=== PATIENT | female | born 2000 | race Caucasian/White ===

== ENCOUNTER 2019-09-01 17:17 | Emergency (ER) | payer SELFPAY ==
[2019-09-01 17:43] VITALS: BP 119/67
--- NOTE | 2019-09-01 18:07 | ER Document Report ---
HPI - HPI Patient complains to provider of: Heel pain Time Seen by Provider: 09/01/19 18:00 Pain Level: 4 Notes: 18-year-old female to the emergency department with complaints of bilateral heel pain and left ankle pain that is been ongoing for the past 2 weeks. 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 She stood she did around off and flip when she landed on her friend's floor she had immediate pain in both of her heels. She states that she did not realize that the patient's carpeted floor was carpeted upon cement. Since then she has pain every time she walks on her heels. She does not have pain in the forefoot of the heel. She does state that her left heel hurts worse than the right. She also states that her left ankle hurts. She also requests testing today. States she has not had a missed period but that she has been actively trying to get . - CONSTITUTIONAL Constitutional: DENIES: Fever, Chills - EENT EENT: DENIES: Sore Throat, Ear Pain, Nasal Drainage-Clear, Congestion - NEURO Neurology: DENIES: Headache - CARDIOVASCULAR Cardiovascular: DENIES: Chest pain - RESPIRATORY Respiratory: DENIES: Trouble Breathing, Coughing - GASTROINTESTINAL Gastrointestinal: DENIES: Abdominal Pain, Nausea, Patient vomiting, Diarrhea, Constipation - REPRODUCTIVE Notes: patient would like to be tested for - MUSCULOSKELETAL Musculoskeletal: REPORTS: Extremity pain - see HPI - DERM Skin Color: Normal Skin Problems: None Past Medical History - General Information source: Patient - Social History Smoking Status: Never Smoker Frequency of alcohol use: None Drug Abuse: None Lives with: Spouse/Significant other Family History: Reviewed & Not Pertinent Patient has suicidal ideation: No Patient has homicidal ideation: No Vertical Provider Document - CONSTITUTIONAL Agree With Documented VS: Yes Exam Limitations: No Limitations General Appearance: WD/WN. negative: No Apparent Distress - INFECTION CONTROL TRAVEL OUTSIDE OF THE [place] IN LAST 30 DAYS: No - HEENT HEENT: Atraumatic, Normocephalic - NECK Neck: Normal Inspection, Supple, Thyroid Normal. negative: Lymphadenopathy- Left, Lymphadenopathy-Right - RESPIRATORY Respiratory: Breath Sounds Normal. negative: Rales, Rhonchi, Wheezing - CARDIOVASCULAR Cardiovascular: Regular Rate, Regular Rhythm, No Murmur - GI/ABDOMEN Gastrointestinal: Abdomen Soft, Abdomen Non-Tender - BACK Back: Normal Inspection - MUSCULOSKELETAL/EXTREMETIES Notes: There is tenderness to palpation over bilateral heels with no edema or erythema or warmth. There is also tenderness to palpation over the lateral malleolus of the left foot. Achilles tendons are both well intact. Patient has 5 out of 5 strength in dorsi flexion and plantar flexion against resistance. There is no tenderness to palpation over the bilateral calves and no tenderness to palpation over the bilateral knees. - NEURO Level of Consciousness: Awake, Alert Motor/Sensory: No Motor Deficit, No Sensory Deficit - DERM Integumentary: Warm, No Rash Course - Re-evaluation Re-evalutation: 09/01/19 18:52 patient requests a serum hcg 09/01/19 19:48 Impression: Bilateral heel injury and left ankle sprain. Placed in splint. Negative test. Will discharge the patient home. Noted chronic findings of AVN -- patient is a former gymnast, likely this is the cause, how ever, discussed these results with her and will have her follow with ortho. - Vital Signs Vital signs: Temp Pulse Resp BP Pulse Ox 98.1 F 77 18 119/67 100 09/01/19 17:42 09/01/19 17:42 09/01/19 17:42 09/01/19 17:42 09/01/19 17:42 - Diagnostic Test Radiology reviewed: Image reviewed, Reports reviewed Procedures - Immobilization Left Ankle Pre-Proc Neuro Vasc Exam: Normal Immobilizer type: Doug wrap, Ankle stirrup Performed by: PCT Post-Proc Neuro Vasc Exam: Normal Alignment checked and good: Yes Right Foot Pre-Proc Neuro Vasc Exam: Normal Immobilizer type: Post-op shoe Performed by: PCT Post-Proc Neuro Vasc Exam: Normal Alignment checked and good: Yes Discharge - Discharge Clinical Impression: Heel pain, bilateral, Negative test Left ankle sprain Qualifiers: Encounter type: initial encounter Involved ligament of ankle: unspecified ligament Qualified Code(s): S93.402A - Sprain of unspecified ligament of left ankle, initial encounter [place]'s infraction Qualifiers: Laterality: unspecified laterality Qualified Code(s): M92.70 - Juvenile osteochondrosis of metatarsus, unspecified foot Condition: Stable Disposition: HOME, SELF-CARE Additional Instructions: Follow-up with orthopedist without fail. Wear splints to aid in pain control. Use crutches. Take medicine as prescribed. Prescriptions: Naproxen [Naprosyn 375 Mg Tablet] 375 mg PO BID #20 tablet Referrals: DHRUV HOLMAN JR, DO [ACTIVE PROVISIONAL STAFF] - Follow up in 3-5 days
--- NOTE | 2019-09-01 18:35 | RADIOLOGY REPORT (SQ) ---
EXAM DESCRIPTION: ANKLE LEFT COMPLETE COMPLETED DATE/TIME: 09/01/2019 5:22 pm REASON FOR STUDY: left ankle pain after injury COMPARISON: None. NUMBER OF VIEWS: Three views. TECHNIQUE: AP, lateral, and oblique radiographic images acquired of the left ankle. LIMITATIONS: None. FINDINGS: MINERALIZATION: Normal. BONES: No acute fracture or dislocation. No worrisome bone lesions. JOINTS: No effusions. SOFT TISSUES: No soft tissue swelling. No foreign body. OTHER: No other significant finding. IMPRESSION: NEGATIVE STUDY OF THE LEFT ANKLE. NO RADIOGRAPHIC EVIDENCE OF ACUTE INJURY. TECHNICAL DOCUMENTATION: JOB ID: [id number] 2010 [employer]- All Rights Reserved Reading location - IP/workstation name: [email or web address]
--- NOTE | 2019-09-01 18:37 | RADIOLOGY REPORT (SQ) ---
EXAM DESCRIPTION: FOOT BILATERAL 3 VIEWS COMPLETED DATE/TIME: 09/01/2019 5:22 pm REASON FOR STUDY: bilateral heel pain for two weeks after injury COMPARISON: None. NUMBER OF VIEWS: Six views. TECHNIQUE: AP, lateral and oblique radiographic images acquired of the right and left foot. LIMITATIONS: None. FINDINGS: MINERALIZATION: Normal. BONES: There is no acute fracture or cortical disruption. Flattening of the 3rd digit metatarsal hea d bilaterally consistent with chronic avascular necrosis. No significant joint space narrowing or os teophytosis. JOINTS: No effusions. SOFT TISSUES: No soft tissue swelling. No foreign body. OTHER: No other significant finding. IMPRESSION: No acute radiographic abnormality of either foot. 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 TECHNICAL DOCUMENTATION: JOB ID: [id number] 2010 [employer]- All Rights Reserved Reading location - IP/workstation name: [email or web address]
== END 2019-09-01 20:11 | disposition home or self-care (01) ==
LOC: ER 17:17
PROC: 2W3RX1Z Immobilization of Left Lower Leg using Splint (ICD-10-PCS; principal; 2019-09-01)
DX: S93.402A Sprain of unspecified ligament of left ankle, initial encounter (principal); M92.70 Juvenile osteochondrosis of metatarsus, unspecified foot; M79.671 Pain in right foot; M79.672 Pain in left foot; M25.572 Pain in left ankle and joints of left foot; W22.8XXA Striking against or struck by other objects, initial encounter; Y93.43 Activity, gymnastics
CPT/HCPCS: 36415; 81025; 84703; 99283